=== PATIENT | female | born 1950 | race African-American/Black ===

== ENCOUNTER 2016-12-25 09:15 | Outpatient (CLI) | payer MEDICARE ==
--- NOTE | 2016-12-25 10:08 | Mammography Report ---
Bilateral mammogram: Compared to 11/25/15. CAD study utilized. Findings: Predominance adipose tissue bilaterally. New focal dense asymmetry right lower axilla seen on MLO view. No microcalcification. Benign axillary nodes. Impression: New focal dense asymmetry right lower axilla. Recommend spot mag and sonographic examination BI-RADS CATEGORY: 0 = Needs additional imaging evaluation ACR BI-RADS MAMMOGRAPHIC CODES: 0 = Needs additional imaging evaluation; 1 = Negative; 2 = Benign; 3 = Probably benign; 4 = Suspicious; 5 = Malignant; 6 = Known biopsy-proven malignancy COMMENT: 1. Dense breast tissue, i.e., adenosis, fibrocystic changes, etc., may obscure an underlying neoplasm. 2. Approximately 10% of cancers are not detected with mammography. 3. A negative mammography report should not delay biopsy if a clinically suspicious mass is present. COMMENT: Patient follow-up letters are generated in [employer].
== END 2016-12-25 09:16 | disposition home or self-care (01) ==
LOC: MAMMO 09:15
DX: Z12.31 Encounter for screening mammogram for malignant neoplasm of breast (principal); I10 Essential (primary) hypertension; E78.00 Pure hypercholesterolemia, unspecified; E11.9 Type 2 diabetes mellitus without complications
CPT/HCPCS: 77067; G0202

== ENCOUNTER 2017-01-15 09:16 | Outpatient (CLI) | payer MEDICARE ==
--- NOTE | 2017-01-15 10:23 | Mammography Report ---
Spot compression magnification of density right lower axilla followed by sonographic examination: Findings: On spot magnification view of the density is indeterminate. On sonographic examination benign single lymph node measuring 0.6 x 0.4 x 2.4 cm noted corresponding to the density. Impression: Benign findings. Annual followup with mammogram recommended . BI-RADS CATEGORY: 2 = Benign ACR BI-RADS MAMMOGRAPHIC CODES: 0 = Needs additional imaging evaluation; 1 = Negative; 2 = Benign; 3 = Probably benign; 4 = Suspicious; 5 = Malignant; 6 = Known biopsy-proven malignancy COMMENT: 1. Dense breast tissue, i.e., adenosis, fibrocystic changes, etc., may obscure an underlying neoplasm. 2. Approximately 10% of cancers are not detected with mammography. 3. A negative mammography report should not delay biopsy if a clinically suspicious mass is present. COMMENT: Patient follow-up letters are generated in [employer].
== END 2017-01-15 09:17 | disposition home or self-care (01) ==
LOC: MAMMO 09:16
DX: R92.8 Other abnormal and inconclusive findings on diagnostic imaging of breast (principal); I10 Essential (primary) hypertension; F32.9 Major depressive disorder, single episode, unspecified; E11.9 Type 2 diabetes mellitus without complications
CPT/HCPCS: 76642; G0206

== ENCOUNTER 2017-12-29 10:52 | Outpatient (CLI) | payer MEDICARE ==
--- NOTE | 2017-12-29 16:37 | Mammography Report ---
BILATERAL DIGITAL SCREENING MAMMOGRAM with CAD : 12/29/17 10:52:00 CLINICAL: Routine screening. COMPARISON:01/15/17 and 12/25/16 FINDINGS: The breasts are heterogeneously dense, which may obscure small masses.The previously worked up right upper posterior asymmetry is stable. No mass, architectural distortion or suspicious calcifications. IMPRESSION: No mammographic evidence of malignancy. BI-RADS CATEGORY: 2 -- Benign RECOMMENDATION: Routine mammographic screening in one year. COMMENT: Patient follow-up letters are generated by our [employer] application.
== END 2017-12-29 10:53 | disposition home or self-care (01) ==
LOC: MAMMO 10:52
DX: Z12.31 Encounter for screening mammogram for malignant neoplasm of breast (principal); I25.10 Atherosclerotic heart disease of native coronary artery without angina pectoris; E78.00 Pure hypercholesterolemia, unspecified; I10 Essential (primary) hypertension; M19.90 Unspecified osteoarthritis, unspecified site
CPT/HCPCS: 77067

== ENCOUNTER 2018-10-26 18:30 | Inpatient (IN) | payer MEDICARE ==
--- NOTE | 2018-10-26 18:46 | Emergency Department Report ---
Blank Doc - Documentation Documentation: 68 y o female presenets with acute onset of dizziness with n/v x 1 day started last night labs
[2018-10-26 20:24] LABS: Hematocrit 39.8 % (30.3-42.9); Hemoglobin 13.4 gm/dl (10.1-14.3); Mean Corpuscular HGB Conc 34 % (30-34); Mean Corpuscular Volume 92 fl (79-97); Platelet Count 267 K/mm3 (140-440); Red Blood Count 4.35 M/mm3 (3.65-5.03); Red Cell Distribution Width 13.6 % (13.2-15.2)
[2018-10-26 20:29] LABS: Bacteria,Urine 1+ /HPF (Negative); Bilirubin,Urine NEG (Negative); Blood,Urine NEG (Negative); Color,Urine Amber (Yellow); Mucus,Urine 3+ /HPF; Urobilinogen,Urine < 2.0 mg/dL (<2.0)
[2018-10-26 20:36] LABS: Alanine Aminotransferase 26 units/L (7-56); Albumin 4.5 g/dL (3.9-5); BUN/Creatinine Ratio 34; Blood Urea Nitrogen 17 mg/dL (7-17); Calcium 9.2 mg/dL (8.4-10.2); Hemolysis Index 8
[2018-10-26] MEDS ORDERED: NACL 0.9% 1000 ML 1,000 ML IV ONE (20:40)
--- NOTE | 2018-10-26 23:11 | Cat Scan Report ---
PROCEDURE: CT HEAD/BRAIN WO CON TECHNIQUE: Computerized tomography of the head was performed without contrast material. CT DOSE LENGTH PRODUCT: 920.5 mGycm HISTORY: dizzy COMPARISONS: None . FINDINGS: Brain: There is no evidence of intracranial hemorrhage. No parenchymal hemorrhage is seen. No mass lesions or mass effect is identified. No abnormal extra-axial fluid collections or masses are seen. Ventricles: The ventricles are normal size and are midline. Sulcal pattern and fissures mildly promi nent consistent with mild atrophy.. Bone Windows: No evidence of fracture. Paranasal sinuses: Minimal mucosal thickening visualized in the left side of the sphenoid sinus and m inimally in the anterior aspect of the right side of the sphenoid sinus medially.. Visualized paranas al sinuses otherwise are clear. Mastoid air cells: Clear. IMPRESSION: No acute intracranial abnormalities are seen. There does appear to be mild atrophy and minimal parana cliff sinus disease. No other abnormalities are identified. . This document is electronically signed by Talat Tran MD., October 26 2018 11:09:39 PM ET
--- NOTE | 2018-10-26 23:18 | Emergency Department Report ---
ED N/V/D HPI - General Chief complaint: Nausea/Vomiting/Diarrhea Stated complaint: DIZZINESS/N&V Time Seen by Provider: 10/26/18 18:43 Source: family Mode of arrival: Wheelchair Limitations: Language Barrier - History of Present Illness Initial comments: 68-year-old female presents to ED with nausea, vomiting, diarrhea, dizziness, since last night. Patient is not taking any medications for her symptoms. Unable to keep food down due to her symptoms. Denies any fever, chills or night sweats. Denies any recent travel or sick contacts. MD complaint: nausea, vomiting, diarrhea -: Last night Description of Vomiting: food contents Description of Diarrhea: water Associated Abdominal Pain: No Location: diffuse Radiation: none Severity: severe Pain Scale: 6 Quality: cramping Consistency: constant Improves with: none Worsens with: none Associated Symptoms: myalgias, headaches, loss of appetite, nausea/vomiting - Related Data Home Medications Medication Instructions Recorded Confirmed Last Taken Atorvastatin (Nf) [Lipitor] 10 mg PO QHS 11/18/13 10/26/18 11/17/13 metFORMIN [Glucophage] 500 mg PO BID 11/18/13 10/26/18 11/17/13 Fenofibrate 1 tab PO DAILY 10/26/18 10/26/18 Unknown Lansoprazole 1 tab PO DAILY 10/26/18 10/26/18 Unknown Metoprolol [Lopressor TAB] 1 tab PO DAILY 10/26/18 10/26/18 Unknown Sitagliptin Phos/Metformin HCl 1 tab PO DAILY 10/26/18 10/26/18 Unknown [Janumet XR 50-500 mg] hydroCHLOROthiazide [HCTZ] 1 tab PO DAILY 10/26/18 10/26/18 Unknown Previous Rx's Medication Instructions Recorded Last Taken Type Aspirin EC 325 mg PO QDAY #30 tablet 11/23/13 Unknown Rx Clopidogrel [Plavix] 75 mg PO QDAY #30 tablet 11/23/13 Unknown Rx ISOSORBIDE MONOnitrate [Imdur] 15 mg PO DAILY #30 tab.er.24h 11/23/13 Unknown Rx Allergies Allergy/AdvReac Type Severity Reaction Status Date / Time No Known Allergies Allergy Unverified 11/18/13 01:37 ED Review of Systems ROS: Stated complaint: DIZZINESS/N&V Other details as noted in HPI Comment: All other systems reviewed and negative Cardiovascular: chest pain Endocrine: denies: excessive sweating, flushing Gastrointestinal: abdominal pain, nausea, vomiting Genitourinary: denies: urgency, dysuria ED Past Medical Hx - Past Medical History Previous Medical History?: Yes Hx Hypertension: Yes Hx Diabetes: Yes Hx Arthritis: Yes Additional medical history: HIGH CHOLESTEROL - Social History Smoking Status: Never Smoker Substance Use Type: None - Medications Home Medications: Home Medications Medication Instructions Recorded Confirmed Last Taken Type Atorvastatin (Nf) [Lipitor] 10 mg PO QHS 11/18/13 10/26/18 11/17/13 History metFORMIN [Glucophage] 500 mg PO BID 11/18/13 10/26/18 11/17/13 History Aspirin EC 325 mg PO QDAY #30 tablet 11/23/13 10/26/18 Unknown Rx Clopidogrel [Plavix] 75 mg PO QDAY #30 tablet 11/23/13 10/26/18 Unknown Rx ISOSORBIDE MONOnitrate [Imdur] 15 mg PO DAILY #30 tab.er.24h 11/23/13 10/26/18 Unknown Rx Fenofibrate 1 tab PO DAILY 10/26/18 10/26/18 Unknown History Lansoprazole 1 tab PO DAILY 10/26/18 10/26/18 Unknown History Metoprolol [Lopressor TAB] 1 tab PO DAILY 10/26/18 10/26/18 Unknown History Sitagliptin Phos/Metformin HCl 1 tab PO DAILY 10/26/18 10/26/18 Unknown History [Janumet XR 50-500 mg] hydroCHLOROthiazide [HCTZ] 1 tab PO DAILY 10/26/18 10/26/18 Unknown History ED Physical Exam - General Limitations: Language Barrier General appearance: lethargic - Head Head exam: Present: atraumatic, normocephalic - Eye Eye exam: Present: normal appearance, PERRL, EOMI - ENT ENT exam: Present: normal exam, normal orophraynx - Neck Neck exam: Present: normal inspection - Respiratory Respiratory exam: Present: normal lung sounds bilaterally - Cardiovascular Cardiovascular Exam: Present: regular rate, normal rhythm - GI/Abdominal GI/Abdominal exam: Present: soft, normal bowel sounds - Back Exam Back exam: Present: normal inspection - Neurological Exam Neurological exam: Present: alert, oriented X3, CN II-XII intact - Psychiatric Psychiatric exam: Present: normal affect, normal mood - Skin Skin exam: Present: warm ED Course Vital Signs 10/26/18 10/26/18 10/26/18 18:43 19:54 20:01 Temperature 97.9 F Pulse Rate 53 L 52 L Respiratory 16 19 Rate Blood Pressure 164/60 191/58 173/66 Blood Pressure [Left] O2 Sat by Pulse 98 98 Oximetry 10/26/18 10/26/18 10/26/18 21:10 22:39 23:00 Temperature 97.9 F Pulse Rate 58 L 62 Respiratory 17 14 Rate Blood Pressure 168/65 169/71 Blood Pressure 168/65 [Left] O2 Sat by Pulse 98 100 96 Oximetry ED Medical Decision Making - Lab Data Result diagrams: 10/26/18 19:30 10/26/18 20:12 - EKG Data EKG shows normal: sinus rhythm Rate: normal - Medical Decision Making 68-year-old female presents to ED with nausea, vomiting, diarrhea, dizziness, since last night. Patient is not taking any medications for her symptoms. Unable to keep food down due to her symptoms. Denies any fever, chills or night sweats. Denies any recent travel or sick contacts. Patient was hydrated with normal saline IV, sodium low will admit to the hospital for further treatment. Critical care attestation.: If time is entered above; I have spent that time in minutes in the direct care of this critically ill patient, excluding procedure time. ED Disposition Clinical Impression: Hyponatremia Disposition: OP ADMIT IP TO THIS HOSP Is pt being admited?: Yes Does the pt Need Aspirin: No Condition: Stable Referrals: PRIMARY CARE, [Primary Care Provider] - 3-5 Days
[2018-10-26] MEDS ORDERED: D50W (25GM) Syringe IV PRN (23:31)
--- NOTE | 2018-10-26 23:32 | History and Physical Report ---
History of Present Illness Date of examination: 10/26/18 History of present illness: 68-year-old woman with a history of hypertension diabetes, hyperlipidemia, CAD came to the emergency room with complaints of nausea vomiting, diarrhea that started yesterday. She had multiple episodes, complaints of also feeling dizzy and generalized weakness. She denies any recent antibiotic, fever or chills. Diarrhea is improving Review of systems Constitutional: no weight loss, chills, fever Ears, eyes, nose, mouth and throat: no nasal congestion, no nasal discharge, no sinus pressure, no vision change, no red eye. Neck: No neck pain or rigidity. Cardiovascular: no palpitations, chest pain Respiratory: no cough, shortness of breath Gastrointestinal: no hematochezia, abdominal pain Genitourinary : no frequency , no hematuria Musculoskeletal: no joint swelling or muscle ache Integumentary: no rash, no pruritis Neurological: no parathesias, no focal weakness Endocrine: no cold or heat intolerance, no polyuria or polydipsia Hematologic/Lymphatic: no easy bruising, no easy bleeding, no gland swelling Allergic/Immunologic: no urticaria, no angioedema. PAST MEDICAL HISTORY: hypertension diabetes, hyperlipidemia, CAD PAST SURGICAL HISTORY: Total knee replacement SOCIAL HISTORY: Denies alcohol, tobacco, drugs FAMILY HISTORY: Hypertension Medications and Allergies Allergies Allergy/AdvReac Type Severity Reaction Status Date / Time No Known Allergies Allergy Unverified 11/18/13 01:37 Home Medications Medication Instructions Recorded Confirmed Last Taken Type Atorvastatin (Nf) [Lipitor] 10 mg PO QHS 11/18/13 10/26/18 11/17/13 History metFORMIN [Glucophage] 500 mg PO BID 11/18/13 10/26/18 11/17/13 History Aspirin EC 325 mg PO QDAY #30 tablet 11/23/13 10/26/18 Unknown Rx Clopidogrel [Plavix] 75 mg PO QDAY #30 tablet 11/23/13 10/26/18 Unknown Rx ISOSORBIDE MONOnitrate [Imdur] 15 mg PO DAILY #30 tab.er.24h 11/23/13 10/26/18 Unknown Rx Fenofibrate 1 tab PO DAILY 10/26/18 10/26/18 Unknown History Lansoprazole 1 tab PO DAILY 10/26/18 10/26/18 Unknown History Metoprolol [Lopressor TAB] 1 tab PO DAILY 10/26/18 10/26/18 Unknown History Sitagliptin Phos/Metformin HCl 1 tab PO DAILY 10/26/18 10/26/18 Unknown History [Janumet XR 50-500 mg] hydroCHLOROthiazide [HCTZ] 1 tab PO DAILY 10/26/18 10/26/18 Unknown History Active Meds: Active Medications Enoxaparin Sodium (Lovenox) 30 mg SUB-Q QDAY ALONDRA Exam - Physical Exam Narrative exam: General Apperance: The patient lying in bed, breathing comfortable HEENT: Normocephalic, atraumatic. Pupils equally round and reactive to light, EOMI, no sclericterus or JVD or thyromegaly or nodule. , no carotid bruit, mucous membranes moist, no exudate or erythema Heart: S1-S2, regular is rhythm Lungs: Clear to auscultation bilaterally, breathing comfortable Abdomen: Positive bowel sounds, soft, nontender, nondistended, no organomegaly Extremities: No edema cyanosis clubbing Skin: no rash, nodule, warm and dry Neuro: cranial nerves 2-12 intact, speech is fluent, motor/sensory intact - Constitutional Vitals: Temp Pulse Resp BP Pulse Ox 97.9 F 62 14 169/71 96 10/26/18 21:10 10/26/18 23:00 10/26/18 23:00 10/26/18 23:00 10/26/18 23:00 Results - Labs CBC & Chem 7: 10/27/18 04:07 10/27/18 04:07 Labs: Abnormal lab results 10/26/18 10/26/18 Range/Units 18:48 20:12 Sodium 119 L* (137-145) mmol/L Chloride 82.5 L (98-107) mmol/L Carbon Dioxide 21 L (22-30) mmol/L Creatinine 0.5 L (0.7-1.2) mg/dL Glucose 178 H (65-100) mg/dL POC Glucose 193 H (70-105) - Imaging and Cardiology CT Scan - head: report reviewed Assessment and Plan Assessment Gastroenteritis, viral Hyponatremia Hypertension Diabetes Plan Admit to medicine Obtain stool cultures, start IV fluids repeat sodium level, hold HCTZ Check fingersticks initiate insulin sliding scale start DVT prophylaxis Addendum Patient received 1 L of fluid bolus and sodium went from 119-127 Sodium of 119 probably an error hold further IV fluids for now and monitor sodium level
[2018-10-26] MEDS ORDERED: NACL 0.9% 1000 ML 1,000 ML IV SCH (23:45)
[2018-10-27] MEDS ORDERED: SODIUM CHLORIDE FLUSH SYRINGE 10 ML IV PRN (00:18)
[2018-10-27] MEDS ORDERED: ZOFRAN IV PRN (00:18)
[2018-10-27] MEDS ORDERED: TYLENOL PO PRN (00:18)
[2018-10-27 04:58] LABS: Basophils % (Auto) 0.6 % (0.0-1.8); Eosinophils # (Auto) 0.1 K/mm3 (0.0-0.4); Eosinophils % (Auto) 1.1 % (0.0-4.3); Hematocrit 34.8 % (30.3-42.9); Hemoglobin 12.1 gm/dl (10.1-14.3); Lymphocytes # (Auto) 1.7 K/mm3 (1.2-5.4); Lymphocytes % (Auto) 22.9 % (13.4-35.0); Mean Corpuscular HGB Conc 35 % (30-34); Mean Corpuscular Volume 88 fl (79-97); Monocytes # (Auto) 0.6 K/mm3 (0.0-0.8); Monocytes % (Auto) 8.3 % (0.0-7.3); Platelet Count 277 K/mm3 (140-440); Red Blood Count 3.96 M/mm3 (3.65-5.03); Red Cell Distribution Width 13.4 % (13.2-15.2)
[2018-10-27 05:20] LABS: BUN/Creatinine Ratio 22; Blood Urea Nitrogen 11 mg/dL (7-17); Calcium 8.9 mg/dL (8.4-10.2); Hemolysis Index 3
[2018-10-27] MEDS ORDERED: K-DUR PO ONE (06:35)
[2018-10-27] MEDS: HumaLOG SUB-Q SCH ×4 (08:00→21:41)
[2018-10-27] MEDS: PLAVIX PO SCH (09:45)
[2018-10-27] MEDS: PROTONIX PO SCH (09:46)
[2018-10-27] MEDS: IMDUR PO SCH (09:46)
[2018-10-27] MEDS: ECOTRIN PO SCH (09:46)
[2018-10-27] MEDS: TRICOR PO SCH (09:49)
[2018-10-27] MEDS: SODIUM CHLORIDE FLUSH SYRINGE 10 ML IV SCH ×2 (09:50→22:00)
[2018-10-27] MEDS: LOVENOX SUB-Q SCH (09:50)
[2018-10-27] MEDS ORDERED: LANSOPRAZOLE PO SCH (10:00)
[2018-10-27] MEDS ORDERED: FENOFIBRATE PO SCH (10:00)
[2018-10-27] MEDS: LOPRESSOR PO SCH (11:00)
--- NOTE | 2018-10-27 17:27 | Progress Note ---
Assessment and Plan Gastroenteritis, viral Hyponatremia Hypertension Diabetes Plan IV FLuids Moinitor Electrolytes Accucheks and coverage Subjective Date of service: 10/27/18 Principal diagnosis: VIral GE Interval history: Admitted for Viral GE And Dehydration Objective - Constitutional Vitals: Vital Signs - 12hr 10/27/18 10/27/18 10/27/18 08:24 09:46 10:00 Temperature 98.3 F Pulse Rate 58 L 63 63 Respiratory 16 Rate Blood Pressure 168/58 168/58 O2 Sat by Pulse 98 Oximetry 10/27/18 11:00 Temperature Pulse Rate 62 Respiratory Rate Blood Pressure 168/65 O2 Sat by Pulse Oximetry General appearance: Present: no acute distress, well-nourished - EENT Eyes: PERRL, EOM intact ENT: hearing intact, clear oral mucosa Ears: bilateral: normal - Neck Neck: supple, normal ROM - Respiratory Respiratory effort: normal Respiratory: bilateral: CTA - Breasts Breasts: normal - Cardiovascular Heart rate: 88 Rhythm: regular Heart Sounds: Present: S1 & S2. Absent: gallop, rub Extremities: no ischemia, pulses intact, No edema, normal color, Full ROM - Gastrointestinal General gastrointestinal: Present: soft, non-tender, non-distended, normal bowel sounds - Genitourinary Female genitourinary: normal - Integumentary Integumentary: clear, warm, dry - Musculoskeletal Musculoskeletal: 1, strength equal bilaterally - Neurologic Neurologic: moves all extremities - Psychiatric Psychiatric: memory intact, appropriate mood/affect, intact judgment & insight - Labs CBC & Chem 7: 10/27/18 04:07 10/28/18 05:40 Labs: Abnormal lab results 10/26/18 10/26/18 10/26/18 Range/Units 18:48 20:12 23:29 MCHC (30-34) % [place] % (Auto) (0.0-7.3) % Sodium 119 L* 127 L D (137-145) mmol/L Potassium (3.6-5.0) mmol/L Chloride 82.5 L (98-107) mmol/L Carbon Dioxide 21 L (22-30) mmol/L Creatinine 0.5 L (0.7-1.2) mg/dL Glucose 178 H (65-100) mg/dL POC Glucose 193 H (70-105) 10/27/18 10/27/18 10/27/18 Range/Units 04:07 04:07 08:32 MCHC 35 H (30-34) % [place] % (Auto) 8.3 H (0.0-7.3) % Sodium 132 L (137-145) mmol/L Potassium 3.3 L (3.6-5.0) mmol/L Chloride 96.9 L (98-107) mmol/L Carbon Dioxide 21 L (22-30) mmol/L Creatinine 0.5 L (0.7-1.2) mg/dL Glucose 122 H (65-100) mg/dL POC Glucose 184 H (70-105) 10/27/18 Range/Units 12:30 MCHC (30-34) % [place] % (Auto) (0.0-7.3) % Sodium (137-145) mmol/L Potassium (3.6-5.0) mmol/L Chloride (98-107) mmol/L Carbon Dioxide (22-30) mmol/L Creatinine (0.7-1.2) mg/dL Glucose (65-100) mg/dL POC Glucose 143 H (70-105)
[2018-10-28 06:40] LABS: Alanine Aminotransferase 23 units/L (7-56); Albumin 4.2 g/dL (3.9-5); BUN/Creatinine Ratio 22; Blood Urea Nitrogen 13 mg/dL (7-17); Calcium 9.2 mg/dL (8.4-10.2); Hemolysis Index 1
[2018-10-28] MEDS: HumaLOG SUB-Q SCH ×3 (08:09→18:13)
[2018-10-28] MEDS: ECOTRIN PO SCH (09:05)
[2018-10-28] MEDS: IMDUR PO SCH (09:06)
[2018-10-28] MEDS: TRICOR PO SCH (09:06)
[2018-10-28] MEDS: PLAVIX PO SCH (09:06)
[2018-10-28] MEDS: LOPRESSOR PO SCH (09:07)
[2018-10-28] MEDS: PROTONIX PO SCH (09:07)
[2018-10-28] MEDS: LOVENOX SUB-Q SCH (09:07)
[2018-10-28] MEDS: SODIUM CHLORIDE FLUSH SYRINGE 10 ML IV SCH (09:07)
[2018-10-28 16:55] VITALS: BP 138/57
--- NOTE | 2018-10-28 17:59 | Discharge Summary ---
Providers - Providers Date of Admission: 10/26/18 23:30 Date of discharge: 10/28/18 Attending physician: CARRI ANDERSON Primary care physician: [employer] Hospitalization Condition: Stable Hospital course: Assessment and Plan Gastroenteritis, viral Hyponatremia--resolved Hypertension- controlled Diabetes--controlled Improved PO Gatorade F/u with Pcp Disposition: DC-01 TO HOME OR SELFCARE Core Measure Documentation - Palliative Care Palliative Care/ Comfort Measures: Not Applicable - Core Measures Any of the following diagnoses?: none Exam - Constitutional Vitals: Temp Pulse Resp BP Pulse Ox 98.0 F 59 L 18 138/57 97 10/28/18 16:53 10/28/18 16:53 10/28/18 16:53 10/28/18 16:53 10/28/18 16:53 General appearance: Present: no acute distress, well-nourished - EENT Eyes: Present: PERRL ENT: hearing intact, clear oral mucosa - Neck Neck: Present: supple, normal ROM - Respiratory Respiratory effort: normal Respiratory: bilateral: CTA - Cardiovascular Heart rate: 78 Rhythm: regular Heart Sounds: Present: S1 & S2. Absent: rub, click - Extremities Extremities: no ischemia, pulses intact, pulses symmetrical, No edema Peripheral Pulses: within normal limits - Abdominal General gastrointestinal: Present: soft, non-tender, non-distended, normal bowel sounds Female genitourinary: Present: normal - Rectal Rectal Exam: deferred - Integumentary Integumentary: Present: clear, warm, dry - Musculoskeletal Musculoskeletal: gait normal, strength equal bilaterally - Psychiatric Psychiatric: appropriate mood/affect, intact judgment & insight - Neurologic Neurologic: CNII-XII intact, moves all extremities - Allied Health Allied health notes reviewed: nursing, case management Plan Follow up with: PRIMARY CARE, [Primary Care Provider] - 3-5 Days
== END 2018-10-28 19:46 | disposition home or self-care (01) | DRG 392 ==
LOC: ED 18:30 → 4A 23:30
PROVIDERS: ADMIT Internal Medicine; ATTEND Internal Medicine
DX: A08.4 Viral intestinal infection, unspecified (principal); E87.1 Hypo-osmolality and hyponatremia; E11.9 Type 2 diabetes mellitus without complications; I10 Essential (primary) hypertension; E86.0 Dehydration; I25.10 Atherosclerotic heart disease of native coronary artery without angina pectoris; Z96.659 Presence of unspecified artificial knee joint; M19.90 Unspecified osteoarthritis, unspecified site; Z82.49 Family history of ischemic heart disease and other diseases of the circulatory system; Z79.82 Long term (current) use of aspirin; Z79.899 Other long term (current) drug therapy
CPT/HCPCS: 36415; 70450; 80048; 80053; 81001; 82150; 82962; 83690; 84295; 85025; 99285; G0378; A9270-GY; J1650; J1815; J7030

== ENCOUNTER 2019-01-04 08:53 | Outpatient (CLI) | payer MEDICARE ==
--- NOTE | 2019-01-04 14:03 | Mammography Report ---
BILATERAL DIGITAL SCREENING MAMMOGRAM WITH CAD INDICATION: Routine screening mammography. TECHNIQUE: Digital bilateral 2D mammography was obtained in the craniocaudal and mediolateral obliq ue projections. This examination was interpreted with the benefit of Computer-Aided Detection analysi s. COMPARISON: 12/29/2017 and 01/15/2017 FINDINGS: Breast Density: The breasts are heterogeneously dense, which may obscure small masses. No mass, architectural distortion or suspicious calcifications.The previously worked up right axillar y lymph node is not significantly changed compared to prior exams. IMPRESSION:No mammographic evidence of malignancy. BI-RADS Category 2: Benign. No mammographic evidence of malignancy. Recommend routine screening ma mmography in one year. A "normal" or negative report should not discourage follow up or biopsy of a clinically significant f inding. A written summary of these findings will be mailed to the patient. The patient will be entered into a mammography reporting system which will generate a reminder letter for the patient's next appointmen t at the appropriate interval. The [employer] recommends yearly mammograms starting at age 40 and continuing as l hiro as a woman is in good health. Breast MRI is recommended for women with an approximate 20-25% or greater lifetime risk of breast cancer, including women with a strong family history of breast or ova kelly cancer or who have been treated for Hodgkin's disease. Signer Name: Preston Valencia MD Signed: 01/04/2019 1:59 PM Workstation Name: [id number]
== END 2019-01-04 08:54 | disposition home or self-care (01) ==
LOC: MAMMO 08:53
DX: Z12.31 Encounter for screening mammogram for malignant neoplasm of breast (principal); I10 Essential (primary) hypertension; E78.00 Pure hypercholesterolemia, unspecified; M19.90 Unspecified osteoarthritis, unspecified site
CPT/HCPCS: 77067

== ENCOUNTER 2021-09-25 10:53 | Outpatient (CLI) | payer MEDICARE ==
[2021-09-25 12:04] LABS: Alanine Aminotransferase 45 units/L (7-56); Albumin 4.6 g/dL (3.9-5); Blood Urea Nitrogen 15 mg/dL (7-17); Calcium 9.3 mg/dL (8.4-10.2); Hemolysis Index 3
[2021-09-25 12:08] LABS: BUN/Creatinine Ratio 30
== END 2021-09-25 10:54 | disposition home or self-care (01) ==
LOC: LAB 10:53
PROVIDERS: ATTEND Specialist
DX: G45.9 Transient cerebral ischemic attack, unspecified (principal); D51.9 Vitamin B12 deficiency anemia, unspecified
CPT/HCPCS: 36415; 80053; 82607; 83921

== ENCOUNTER 2021-10-28 12:13 | Outpatient (CLI) | payer MEDICARE ==
[2021-10-28 12:40] LABS: Hematocrit 32.3 % (30.3-42.9); Hemoglobin 10.7 gm/dl (10.1-14.3); Mean Corpuscular HGB Conc 33 % (30-34); Mean Corpuscular Volume 89 fl (79-97); Platelet Count 255 K/mm3 (140-440); Red Blood Count 3.63 M/mm3 (3.65-5.03); Red Cell Distribution Width 14.7 % (13.2-15.2)
[2021-10-28 12:58] LABS: Erythrocyte Sedimentation Rate 35 mm/Hr (0-20)
== END 2021-10-28 12:14 | disposition home or self-care (01) ==
LOC: LAB 12:13
PROVIDERS: ATTEND Specialist
DX: E08.42 Diabetes mellitus due to underlying condition with diabetic polyneuropathy (principal)
CPT/HCPCS: 36415; 85027; 85652; 86140